=== PATIENT | male | born 1945 | race Caucasian/White ===

== ENCOUNTER 2016-10-07 10:27 | Inpatient (IN) | payer OTHER, MEDICARE ==
[~2016-10-07 10:27] MED LIST: AFREZZA1 EACH SC; ALDACTONE25 M1 PO; ASPIR-LOW81 M1 PO; ASPIRIN EC325 M1 PO; ASPIRIN-DIPYRI1 EACH PO; ASPIRIN81 MG PO; CARDIZEM CD180 MG PO; COUMADIN5 M2 PO; COUMADIN7.5 MG PO; COZAAR50 M1 PO; DOXYCYCLINE HY100 MG PO; EFUDEX EXT; FUROSEMIDE20 MG PO; FUROSEMIDE80 M2 PO; LANTUS SOL100 UNIT/1 SC; LEVOTHYROXINE25 MC3 PO; LISINOPRIL20 MG PO; LOPERAMIDE2 M3 PO; LORCET 10/650 T1 TAB PO; LOSARTAN POTAS100 M1 PO; METHOCARBAMOL500 M2 PO; METHOCARBAMOL500 MG PO; METOPROLOL SUC200 M1 PO; METOPROLOL SUC200 MG PO; MULTIVITAMIN1 TAB PO; MULTIVITAMINS1 EAC7 PO; NEURONTIN300 M1 PO; NOVOLIN N100 U/ML SQ; NOVOLIN R100 U/ML SQ; NOVOLOG FL100 UNIT/2 SC; POTASSIUM CHLO20 ME3 PO; PRAVACHOL40 M1 PO; PRAVACHOL40 MG PO; PRAVASTATIN SOD40 M1 PO; SPIRONOLACTONE25 M2 PO; SYMBICORT 160-1 PUFF INH; SYNTHROID25 MC1 PO; TOPROL XL200 M1 PO; TRAMADOL HCL50 M2 PO; UREA; VENLAFAXINE HC100 M1 PO; VENLAFAXINE HC100 MG PO; WARFARIN SODIUM5 M2 PO; WARFARIN SODIUM5 MG PO
[2016-10-07 11:39] LABS: BASO % 0.4 % (0-2); EOS % 0.8 % (0-7); EOSINOPHIL ABSOLUTE COUNT 0.1 tho/cmm (0.0-0.7); HCT-HEMATOCRIT 37.5 % (36.0-53.5); LYMPH % 14.2 % (20-45); LYMPH ABSOLUTE COUNT 1.4 tho/cmm (0.8-4.5); MCH (MEAN CORPUSCULAR HGB) 33.2 pg (28.0-32.0); MCHC MEAN CORPUSCULAR HGB CONC 34.7 % (32.0-36.0); MCV (MEAN CELL VOLUME) 95.9 fl (82.0-96.0); MEAN PLATELET VOLUME 8.7 cmc (9.4-12.4); MONO % 10.6 % (0-12); NEUTROPHIL ABSOLUTE COUNT 7.2 tho/cmm (1.6-8.0); NEUTROPHIL-AUTOMATED 7.2 tho/cmm (1.6-8.0); PLATELET COUNT 260 tho/cmm (150-450); RED BLOOD COUNT 3.91 mil/cmm (4.40-5.70); RED CELL DISTRIBUTION WIDTH 13.4 % (12.4-16.4); WHITE BLOOD COUNT 9.7 tho/cmm (4.0-10.0)
[2016-10-07 12:00] LABS: ANION GAP 12 mmol/L (0-20); BLOOD UREA NITROGEN 18 mg/dl (6-24); CARBON DIOXIDE-VENOUS 29 mmol/L (22-32); CHLORIDE 106 mmol/l (96-110); CREATININE 1.04 mg/dl (0.60-1.30); GLUCOSE 167 mg/dL (70-110); SODIUM 142 mmol/L (135-145); eGFR VALUE FOR BLACK 84 mL/Min
[2016-10-07] MEDS ORDERED: [UNRECOGNIZED DRUG - OTHER] OP (12:04)
[2016-10-07] MEDS ORDERED: METFORMIN HCL500 M4 PO (12:05)
[2016-10-07] MEDS ORDERED: OXYCODONE-ACET1 EAC3 PO (12:06)
[2016-10-07] MEDS ORDERED: ROSUVASTATIN CA10 MG PO (12:07)
[2016-10-07] MEDS ORDERED: WARFARIN SODIUM5 M2 PO (12:08)
[2016-10-07 16:54] LABS: INR 1.7 INR (0.9-1.1); PROTHROMBIN TIME 20.3 SECONDS (9.0-13.6)
[2016-10-08 14:40] LABS: INR 1.5 INR (0.9-1.1); PROTHROMBIN TIME 17.2 SECONDS (9.0-13.6)
[2016-10-09 00:24] LABS: ANION GAP 11 mmol/L (0-20); BLOOD UREA NITROGEN 21 mg/dl (6-24); CALCIUM 8.9 mg/dl (8.5-10.5); CARBON DIOXIDE-VENOUS 29 mmol/L (22-32); CHLORIDE 104 mmol/l (96-110); CREATININE 1.19 mg/dl (0.60-1.30); GLUCOSE 137 mg/dL (70-110); MAGNESIUM 1.7 mg/dl (1.3-2.6); SODIUM 140 mmol/L (135-145); eGFR VALUE FOR BLACK 71 mL/Min
[2016-10-09 00:38] LABS: POTASSIUM 3.7 mmol/L (3.7-5.1)
[2016-10-09 06:03] LABS: INR 1.4 INR (0.9-1.1); PROTHROMBIN TIME 16.6 SECONDS (9.0-13.6)
[2016-10-09 06:10] LABS: ANION GAP 11 mmol/L (0-20); BLOOD UREA NITROGEN 22 mg/dl (6-24); CALCIUM 8.6 mg/dl (8.5-10.5); CARBON DIOXIDE-VENOUS 29 mmol/L (22-32); CHLORIDE 104 mmol/l (96-110); CREATININE 1.09 mg/dl (0.60-1.30); GLUCOSE 140 mg/dL (70-110); POTASSIUM 3.7 mmol/L (3.7-5.1); SODIUM 140 mmol/L (135-145); eGFR VALUE FOR BLACK 79 mL/Min
[2016-10-10 05:31] LABS: BLOOD UREA NITROGEN 23 mg/dl (6-24); CREATININE 1.16 mg/dl (0.60-1.30); eGFR VALUE FOR BLACK 74 mL/Min
[2016-10-10] MEDS ORDERED: AGGRENOX 25 MG1 EACH PO (11:11)
[2016-10-23] MEDS ORDERED: PLAVIX75 M1 PO (03:23)
[2016-10-23] MEDS ORDERED: ULTRAM50 M1 PO (10:45)
== END 2016-10-10 13:00 | disposition home health service (06) | DRG 247 ==
LOC: EDMED 10:27 → EMR2 14:54 → CAR1 15:50 → CCU 10-09 11:58
PROVIDERS: Emergency Medicine; Physician Assistant; ADMIT Internal Medicine
PROC: 4A023N7 Measurement of Cardiac Sampling and Pressure, Left Heart, Percutaneous Approach (ICD-10-PCS; principal; 2016-10-09)
PROC: 027034Z Dilation of Coronary Artery, One Artery with Drug-eluting Intraluminal Device, Percutaneous Approach (ICD-10-PCS; 2016-10-09)
PROC: B2111ZZ Fluoroscopy of Multiple Coronary Arteries using Low Osmolar Contrast (ICD-10-PCS; 2016-10-09)
PROC: B2151ZZ Fluoroscopy of Left Heart using Low Osmolar Contrast (ICD-10-PCS; 2016-10-09)
DX: I25.10 Atherosclerotic heart disease of native coronary artery without angina pectoris (principal); I42.9 Cardiomyopathy, unspecified; I11.0 Hypertensive heart disease with heart failure; I50.9 Heart failure, unspecified; E11.9 Type 2 diabetes mellitus without complications; Z79.4 Long term (current) use of insulin; Z79.84 Long term (current) use of oral hypoglycemic drugs; J44.9 Chronic obstructive pulmonary disease, unspecified; E78.5 Hyperlipidemia, unspecified; Z95.810 Presence of automatic (implantable) cardiac defibrillator; I48.91 Unspecified atrial fibrillation
CPT/HCPCS: A9500; C1725; C1769; C1874; C1887; C1894; C9600-RI; J1644; J1815; J2250; J2785; J3010; J3475; J7030; J7050; Q9967

== ENCOUNTER 2016-10-27 03:09 | Emergency (ER) | payer MEDICARE ==
[~2016-10-27 03:09] MED LIST changes: +AGGRENOX 25 MG1 EACH PO; +METFORMIN HCL500 M4 PO; +OXYCODONE-ACET1 EAC3 PO; +PLAVIX75 M1 PO; +ROSUVASTATIN CA10 MG PO; +ULTRAM50 M1 PO; +[UNRECOGNIZED DRUG - OTHER] OP
[2016-10-27 04:11] LABS: BASO % 0.3 % (0-2); EOS % 1.4 % (0-7); EOSINOPHIL ABSOLUTE COUNT 0.2 tho/cmm (0.0-0.7); HCT-HEMATOCRIT 40.4 % (36.0-53.5); HGB-HEMOGLOBIN 14.6 gm/dl (13.5-17.0); IMMATURE GRANULOCYTES ABSOLUTE 0.04 tho/cmm (0-0.03); IMMATURE GRANULOCYTES PERCENT 0.3 % (0-0.3); LYMPH % 11.7 % (20-45); LYMPH ABSOLUTE COUNT 1.5 tho/cmm (0.8-4.5); MCH (MEAN CORPUSCULAR HGB) 34.2 pg (28.0-32.0); MCHC MEAN CORPUSCULAR HGB CONC 36.1 % (32.0-36.0); MCV (MEAN CELL VOLUME) 94.6 fl (82.0-96.0); MEAN PLATELET VOLUME 8.8 cmc (9.4-12.4); MONO % 13.4 % (0-12); MONOCYTE ABSOLUTE COUNT 1.7 tho/cmm (0.0-1.2); NEUTROPHIL ABSOLUTE COUNT 9.1 tho/cmm (1.6-8.0); NEUTROPHIL-AUTOMATED 9.1 tho/cmm (1.6-8.0); NEUTROPHILS % 72.9 % (40-80); PLATELET COUNT 266 tho/cmm (150-450); RED BLOOD COUNT 4.27 mil/cmm (4.40-5.70); RED CELL DISTRIBUTION WIDTH 13.2 % (12.4-16.4); WHITE BLOOD COUNT 12.5 tho/cmm (4.0-10.0)
[2016-10-27 04:13] LABS: INR 1.8 INR (0.9-1.1); PROTHROMBIN TIME 21.5 SECONDS (9.0-13.6)
[2016-10-27 04:19] LABS: URINE BILIRUBIN NEGATIVE (NEG); URINE BLOOD SMALL (NEG); URINE GLUCOSE (UA) NEGATIVE (NEG); URINE KETONE SMALL (NEG); URINE LEUKOCYTE ESTERASE NEGATIVE (NEG); URINE NITRITE NEGATIVE (NEG); URINE PROTEIN SMALL (NEG)
[2016-10-27 04:20] LABS: URINE APPEARANCE CLEAR; URINE COLOR YELLOW
[2016-10-27 04:30] LABS: ANION GAP 15 mmol/L (0-20); BLOOD UREA NITROGEN 17 mg/dl (6-24); CARBON DIOXIDE-VENOUS 24 mmol/L (22-32); CHLORIDE 99 mmol/l (96-110); CREATININE 1.13 mg/dl (0.60-1.30); GLUCOSE 193 mg/dL (70-110); POTASSIUM 3.6 mmol/L (3.7-5.1); SODIUM 134 mmol/L (135-145); eGFR VALUE FOR BLACK 76 mL/Min
[2016-10-27 04:32] LABS: URINE MUCUS 2+
[2016-10-27 04:33] LABS: URINE EPITHELIAL CELLS 0-3 /[HPF] (0-10)
[2016-10-27] MEDS ORDERED: VIBRAMYCIN100 M1 PO (05:06)
[2016-10-27] MEDS ORDERED: GUAIFENESIN AC473 ML PO (05:09)
== END 2016-10-27 05:45 ==
LOC: EDMED 03:09
PROVIDERS: Nurse Practitioner Family
DX: J40 Bronchitis, not specified as acute or chronic (principal); I11.0 Hypertensive heart disease with heart failure; I48.91 Unspecified atrial fibrillation; E11.9 Type 2 diabetes mellitus without complications; Z85.828 Personal history of other malignant neoplasm of skin; Z90.49 Acquired absence of other specified parts of digestive tract; Z98.890 Other specified postprocedural states; Z88.0 Allergy status to penicillin; Z88.8 Allergy status to other drugs, medicaments and biological substances; Z79.01 Long term (current) use of anticoagulants; Z79.4 Long term (current) use of insulin; Z79.890 Hormone replacement therapy; Z79.899 Other long term (current) drug therapy

== ENCOUNTER 2016-11-22 17:34 | Emergency (ER) | payer MEDICARE ==
[~2016-11-22 17:34] MED LIST changes: +GUAIFENESIN AC473 ML PO; +VIBRAMYCIN100 M1 PO
[2016-11-22 19:56] LABS: BASO % 0.4 % (0-2); BASO ABSOLUTE COUNT 0.1 tho/cmm (0.0-0.2); EOS % 1.1 % (0-7); EOSINOPHIL ABSOLUTE COUNT 0.2 tho/cmm (0.0-0.7); HCT-HEMATOCRIT 38.6 % (36.0-53.5); HGB-HEMOGLOBIN 13.4 gm/dl (13.5-17.0); IMMATURE GRANULOCYTES ABSOLUTE 0.07 tho/cmm (0-0.03); IMMATURE GRANULOCYTES PERCENT 0.5 % (0-0.3); LYMPH % 9.2 % (20-45); LYMPH ABSOLUTE COUNT 1.3 tho/cmm (0.8-4.5); MCH (MEAN CORPUSCULAR HGB) 33.4 pg (28.0-32.0); MCHC MEAN CORPUSCULAR HGB CONC 34.7 % (32.0-36.0); MCV (MEAN CELL VOLUME) 96.3 fl (82.0-96.0); MEAN PLATELET VOLUME 8.6 cmc (9.4-12.4); MONOCYTE ABSOLUTE COUNT 1.1 tho/cmm (0.0-1.2); NEUTROPHIL ABSOLUTE COUNT 10.9 tho/cmm (1.6-8.0); NEUTROPHIL-AUTOMATED 10.9 tho/cmm (1.6-8.0); NEUTROPHILS % 80.8 % (40-80); PLATELET COUNT 288 tho/cmm (150-450); RED BLOOD COUNT 4.01 mil/cmm (4.40-5.70); WHITE BLOOD COUNT 13.6 tho/cmm (4.0-10.0)
[2016-11-22 20:00] LABS: INR 2.5 INR (0.9-1.1); PROTHROMBIN TIME 29.6 SECONDS (9.0-13.6)
[2016-11-22 20:12] LABS: ALB/GLOB RATIO 0.7 (0.8-2.0); ALBUMIN 3.5 g/dl (3.5-5.0); ALKALINE PHOSPHATASE 57 U/L (33-138); ALT/SGPT 21 U/L (12-78); ANION GAP 16 mmol/L (0-20); AST/SGOT 19 U/L (10-40); BILIRUBIN,TOTAL 0.9 mg/dl (0.0-1.5); BLOOD UREA NITROGEN 30 mg/dl (6-24); CALCIUM 8.9 mg/dl (8.5-10.5); CARBON DIOXIDE-VENOUS 28 mmol/L (22-32); CHLORIDE 99 mmol/l (96-110); CREATININE 2.72 mg/dl (0.60-1.30); GLUCOSE 217 mg/dL (70-110); POTASSIUM 4.8 mmol/L (3.7-5.1); SODIUM 138 mmol/L (135-145); eGFR VALUE FOR BLACK 26 mL/Min
[2016-11-22] MEDS ORDERED: PREDNISONE10 M1 PO (21:48)
[2016-11-22] MEDS ORDERED: PROAIR HFA8.5 GM INH (21:49)
== END 2016-11-22 21:45 ==
LOC: EDMED 17:34
PROVIDERS: Emergency Medicine
DX: J44.1 Chronic obstructive pulmonary disease with (acute) exacerbation (principal); H53.2 Diplopia; R25.1 Tremor, unspecified; I51.9 Heart disease, unspecified; Z86.73 Personal history of transient ischemic attack (TIA), and cerebral infarction without residual deficits; Z95.0 Presence of cardiac pacemaker; Z79.51 Long term (current) use of inhaled steroids; Z79.82 Long term (current) use of aspirin; Z79.899 Other long term (current) drug therapy